=== PATIENT | female | born 1940 | race Caucasian/White ===

== ENCOUNTER 2018-08-25 15:05 | Observation (INO) | payer MEDICARE, BC ==
[~2018-08-25] VITALS: Ht 157.5 cm; Wt 65.8 kg
[2018-08-25] MEDS ORDERED: OMEP20ER PO (15:17)
[2018-08-25] MEDS ORDERED: LISI20 PO (15:17)
[2018-08-25] MEDS ORDERED: ATOR40TA PO (15:17)
[2018-08-25 15:27] LABS: BASOPHILS ABSOLUTE AUTO 0.02 K/mm3 (0.00-0.23); BASOPHILS PERCENT AUTO 0 % (0-2); EOSINOPHILS ABSOLUTE AUTO 0.03 K/mm3 (0.00-0.68); EOSINOPHILS PERCENT AUTO 0 % (0-6); Hematocrit 34.3 % (33.0-51.0); Hemoglobin 11.3 g/dL (11.5-16.0); IMMATURE GRAN ABSOLUTE AUTO 0.07 K/mm3 (0.00-0.10); IMMATURE GRAN PERCENT AUTO 1 % (0-1); LYMPHOCYTES ABSOLUTE AUTO 0.52 K/mm3 (0.84-5.20); LYMPHOCYTES PERCENT AUTO 4 % (21-46); MONOCYTES ABSOLUTE AUTO 1.23 K/mm3 (0.16-1.47); MONOCYTES PERCENT AUTO 9 % (4-13); Mean Corpuscular HGB 30.9 pg (26.0-34.0); Mean Corpuscular HGB Conc 32.9 g/dL (31.5-36.5); Mean Corpuscular Volume 94 fL (80-100); Mean Platelet Volume 10.7 fL (9.1-12.4); NEUTROPHILS ABSOLUTE AUTO 12.21 K/mm3 (1.96-9.15); NEUTROPHILS PERCENT AUTO 87 % (41-73); Platelet Count 198 K/mm3 (150-400); RDW Coefficient Variation 12.9 % (11.7-14.2); RDW Standard Deviation 44.5 fL (35.1-46.3); Red Blood Cell Count 3.66 M/mm3 (3.80-5.20); White Blood Cell Count 14.08 K/mm3 (4.00-11.30)
[2018-08-25 15:49] LABS: Alanine Aminotransfer (ALT/SGP 37 U/L (12-78); Albumin, Blood 3.5 g/dL (3.4-5.0); Albumin/Globulin Ratio 1.1 (0.8-1.8); Alk Phos 79 U/L (50-136); Anion Gap 7 mmol/L (6-16); Aspartate Aminotrans (AST/SGOT 21 U/L (12-37); Bilirubin, Total 0.9 mg/dL (0.1-1.0); Blood Urea Nitrogen 27 mg/dL (8-24); Bun/Creatinine Ratio 26.5 (12.0-20.0); CO2, Blood 25 mmol/L (21-32); Calcium, Blood 8.8 mg/dL (8.5-10.1); Chloride, Blood 104 mmol/L (98-108); Creatinine, Blood 1.02 mg/dL (0.40-1.00); Globulin, Blood 3.1 g/dL (2.2-4.0); Glomerular Filtration Rate 56 (60-); Glucose, Blood 120 mg/dL (70-99); Potassium, Blood 4.1 mmol/L (3.5-5.5); Sodium, Blood 136 mmol/L (136-145); Total Protein, Blood 6.6 g/dL (6.4-8.2); Troponin I <0.015 ng/mL (0.000-0.040)
[2018-08-25 16:37] LABS: Source, Urine Clean Catch
[2018-08-25 16:40] LABS: Bilirubin, Urine Neg (Neg); Blood, Urine 2+ (Neg); Glucose Qualitative, Urine Neg (Neg); Ketones, Urine 1+ (Neg); Leukocyte Esterase, Urine 3+ (Neg); Nitrite, Urine Pos (Neg); Protein, Urine 2+ (Neg); Specific Gravity, Urine 1.015 (1.003-1.022); Urobilinogen, Urine NORM (Normal)
[2018-08-25 16:45] LABS: Appearance, Urine Hazy (Clear); Color, Urine Yellow (P-Yellow)
[2018-08-25 16:47] LABS: Bacteria Many /hpf; Mucus Light (0-Heavy); Red Blood Cells, Urine 0-2 /hpf (0-2); Squamous Epithelial Cells Not Seen /hpf (Few); White Blood Cells, Urine 50-100 /hpf (0-5)
--- NOTE | 2018-08-25 22:45 | NUR ---
PT PULLED OUT IV GOING TO RESTROOM. NEW ONE PLACED AND PT EDUCATED AGAIN OF USINGIV POLE WHEN GOING TO BATHROOM.
--- NOTE | 2018-08-26 04:44 | NUR ---
SHIFT SUMMARY PT ARRIVED TO ROOM IN NO DISTRESS. PT HAD PULLED HER IV GOING TO BATHROOM BY ACCIDENT. PT WAS SLIGHTLY CONFUSED WHEN SHE WOKE UP TO USE BATHROOM. PT HAD A TEMP NOTED AND TX PER EMAR. PT CURRENTLY SLEEPING AND BREATHING EASY. PT HAD DROP IN BP WILL REASSESS. CALL LIGHT IN REACH.
[2018-08-26 05:01] LABS: BASOPHILS ABSOLUTE AUTO 0.02 K/mm3 (0.00-0.23); BASOPHILS PERCENT AUTO 0 % (0-2); EOSINOPHILS ABSOLUTE AUTO 0.01 K/mm3 (0.00-0.68); EOSINOPHILS PERCENT AUTO 0 % (0-6); Hematocrit 29.7 % (33.0-51.0); Hemoglobin 9.7 g/dL (11.5-16.0); IMMATURE GRAN ABSOLUTE AUTO 0.16 K/mm3 (0.00-0.10); IMMATURE GRAN PERCENT AUTO 1 % (0-1); LYMPHOCYTES ABSOLUTE AUTO 1.01 K/mm3 (0.84-5.20); LYMPHOCYTES PERCENT AUTO 7 % (21-46); MONOCYTES ABSOLUTE AUTO 1.53 K/mm3 (0.16-1.47); MONOCYTES PERCENT AUTO 10 % (4-13); Mean Corpuscular HGB 30.6 pg (26.0-34.0); Mean Corpuscular HGB Conc 32.7 g/dL (31.5-36.5); Mean Corpuscular Volume 94 fL (80-100); Mean Platelet Volume 10.6 fL (9.1-12.4); NEUTROPHILS PERCENT AUTO 82 % (41-73); Platelet Count 175 K/mm3 (150-400); RDW Standard Deviation 44.8 fL (35.1-46.3); Red Blood Cell Count 3.17 M/mm3 (3.80-5.20); White Blood Cell Count 15.33 K/mm3 (4.00-11.30)
[2018-08-26 05:25] LABS: Bun/Creatinine Ratio 22.5 (12.0-20.0); Calcium, Blood 7.8 mg/dL (8.5-10.1); Creatinine, Blood 1.11 mg/dL (0.40-1.00); Potassium, Blood 3.6 mmol/L (3.5-5.5)
--- NOTE | 2018-08-26 18:18 | NUR ---
SHIFT SUMMARY ELROY RECEIVED TYLENOL FOR HEADACHE, WHICH WORKED WELL. DENIES URINARY SYMPTOMS. GOT A SHOWER. HAD A BM. SBA TO BR. TELE DC'D. FAMILY VISITED. HOPEFUL TO GET DISCHARGED IN MORNING. CALL LIGHT IN REACH, WCTM
--- NOTE | 2018-08-27 04:20 | NUR ---
SHIFT SUMMARY PT HAD NO COMPLAINTS OR ISSUES NOTED. PT WAS TIRED AT BEGINNING OF SHIFT. SHE VISTORS DURING THE DAY AND WAS FATIGUED. PT WENT TO SLEEP AFTER NIGHT MEDS. PT EAGER TO BE DISCHARGED SOON. PT CURRENTLY SLEEPING AND BREATHING EASY. CALL LIGHT IN REACH.
[2018-08-27 05:05] LABS: BASOPHILS ABSOLUTE AUTO 0.01 K/mm3 (0.00-0.23); BASOPHILS PERCENT AUTO 0 % (0-2); EOSINOPHILS ABSOLUTE AUTO 0.09 K/mm3 (0.00-0.68); EOSINOPHILS PERCENT AUTO 1 % (0-6); Hematocrit 28.6 % (33.0-51.0); Hemoglobin 9.5 g/dL (11.5-16.0); IMMATURE GRAN ABSOLUTE AUTO 0.04 K/mm3 (0.00-0.10); IMMATURE GRAN PERCENT AUTO 1 % (0-1); LYMPHOCYTES ABSOLUTE AUTO 0.63 K/mm3 (0.84-5.20); LYMPHOCYTES PERCENT AUTO 8 % (21-46); MONOCYTES ABSOLUTE AUTO 0.88 K/mm3 (0.16-1.47); MONOCYTES PERCENT AUTO 11 % (4-13); Mean Corpuscular HGB 30.9 pg (26.0-34.0); Mean Corpuscular HGB Conc 33.2 g/dL (31.5-36.5); Mean Corpuscular Volume 93 fL (80-100); Mean Platelet Volume 10.7 fL (9.1-12.4); NEUTROPHILS ABSOLUTE AUTO 6.41 K/mm3 (1.96-9.15); NEUTROPHILS PERCENT AUTO 80 % (41-73); Platelet Count 147 K/mm3 (150-400); RDW Coefficient Variation 13.1 % (11.7-14.2); RDW Standard Deviation 44.4 fL (35.1-46.3); Red Blood Cell Count 3.07 M/mm3 (3.80-5.20); White Blood Cell Count 8.06 K/mm3 (4.00-11.30)
[2018-08-27 05:29] LABS: Albumin, Blood 2.3 g/dL (3.4-5.0); Albumin/Globulin Ratio 0.7 (0.8-1.8); Bilirubin, Total 0.4 mg/dL (0.1-1.0); Bun/Creatinine Ratio 16.2 (12.0-20.0); Creatinine, Blood 1.05 mg/dL (0.40-1.00); Globulin, Blood 3.2 g/dL (2.2-4.0); Potassium, Blood 3.9 mmol/L (3.5-5.5); Total Protein, Blood 5.5 g/dL (6.4-8.2)
[2018-08-27] MEDS ORDERED: LEVFLO500 PO (10:26)
--- NOTE | 2018-08-27 11:25 | NUR ---
DISCHARGE SUMMARY PATIENT A&O X4, INDEPENDENT IN THE ROOM. DENIES ANY PAIN, SOB, OR NAUSEA. IV D/C, WNL. ALL DISCHARGE INSTRUCTIONS REVIEWED, PATIENT EDUCATION PROVIDED, MEDICATIONS FAXED TO [facility]. RN WALKED OUT WITH PATIENT, ALL BELONGINGS IN HAND.
== END 2018-08-27 11:05 | disposition home or self-care (01) ==
LOC: ER 15:05 → MEDS 15:06 → ENPENDDIS 08-27 09:22 → MEDS 08-27 11:05
PROVIDERS: Internal Medicine; Physician Assistant; ADMIT Internal Medicine
DX: A41.9 Sepsis, unspecified organism (principal); G93.40 Encephalopathy, unspecified; N39.0 Urinary tract infection, site not specified; N17.9 Acute kidney failure, unspecified; D64.9 Anemia, unspecified; I10 Essential (primary) hypertension; E78.5 Hyperlipidemia, unspecified; K21.9 Gastro-esophageal reflux disease without esophagitis; Z79.899 Other long term (current) drug therapy
CPT/HCPCS: 36415; 70450; 71046; 80048; 80053; 81001; 83605; 84484; 85025; 87040; 87077; 87086; 87186; 93005; 93010; 96361; 96365; 96366; 96367; 96372; 99285-25; A9270; G0378; J0696; J1650; J1956; J7030